=== PATIENT | female | born 1930 | race Caucasian/White ===

== ENCOUNTER 2020-04-26 00:05 | Inpatient (IN) | payer MEDICARE, OTHER ==
[~2020-04-26] VITALS: Ht 149.9 cm; Wt 64.8 kg
[2020-04-26] VITALS (7 sets, daily range): BP systolic 113–150; BP diastolic 53–75
[~2020-04-26 00:05] MED LIST: CEFT2PIG2 IV; ENAL1TAB4 PO; LEVO100T PO; METO25TA35 PO
[2020-04-26] MEDS ORDERED: ONDANSETRON 2MG/ML, 2ML IVPush ONE (00:30)
[2020-04-26] MEDS ORDERED: ONDANSETRON 2MG/ML, 2ML ONE (00:37)
[2020-04-26] MEDS ORDERED: MORPHINE SULFATE 4 MG/ML, 1ML ONE ×2 (00:37→01:47)
[2020-04-26] MEDS: MORPHINE SULFATE 4 MG/ML, 1ML IVPush PRN ×2 (00:40→01:51)
--- NOTE | 2020-04-26 00:44 | NUR ---
PT BIB [facility] FOR C/O ABD DISTENSION AND ABD PAIN THAT STARTED 2 HOURS AGO AND HAS PROGRESSIVELY GOTTEN WORSE. PT HAS FOCAL TENDERNESS EPIGASTRIC, DIFFUSE TENDERNESS THROUGHOUT ABDOMEN. DENIES ANY OTHER SYMPTOMS, NO N/V/D, FEVERS, OR URINARY COMPLAINTS. PT HAD A BOWEL MOVEMENT THIS MORNING. PT HAS FREQUENT PACs AND PVCs ON THE MONITOR. PT MEDICATED PER NOV, SPO2 DIPPED TO 87% ON RA AFTER ADMIN. PT PLACED ON 2L O2 FOR SUPPORT WHILE MEDICATED. EKG COMPLETED. LAB AT BEDSIDE. PT DENIES ANY NEEDS AT THIS TIME. CALL LIGHT IN REACH.
[2020-04-26 00:55] LABS: ALANINE AMINOTRANSFERASE 13 U/L (12-78); ALBUMIN 2.8 g/dL (3.4-5.0); ANION GAP 10 mmol/L (5-15); CALCIUM 8.7 mg/dL (8.5-10.1); CHLORIDE 110 mmol/L (98-107)
[2020-04-26 01:00] LABS: ALKALINE PHOSPHATASE 123 U/L (45-117); BILIRUBIN,TOTAL 0.2 mg/dL (0.2-1.0); TOTAL PROTEIN 7.3 g/dL (6.4-8.2); TROPONIN I 0.021 ng/mL (0.000-0.045)
[2020-04-26 01:02] LABS: MEAN CORPUSCULAR HEMOGLOBIN 24.9 pg (27.0-34.8); MEAN CORPUSCULAR HGB CONC 30.9 g/dL (32.4-35.8); MEAN PLATELET VOLUME 7.8 fL (7.4-10.4); PLATELET COUNT 414 x10^3/uL (130-400); RED BLOOD COUNT 3.19 x10^6/uL (3.82-5.3); RED CELL DISTRIBUTION WIDTH 16.5 % (9.6-15.2)
[2020-04-26 01:04] LABS: MD YES
[2020-04-26 01:11] LABS: ANISOCYTOSIS 1+; HYPOCHROMIA 1+; LYMPH#(MANUAL) 0.34 x10^3/uL (1-3.4); LYMPHS% (MANUAL) 3 % (22-44); MONOS#(MANUAL) 0.45 x10^3/uL (0.3-2.7); MONOS% (MANUAL) 4 % (2-9); SEG#(MANUAL) 10.42 x10^3/uL (1.8-6.8); SEGS% (MANUAL) 93 % (42-75)
[2020-04-26 01:12] LABS: <PLATELET ESTIMATE> INCREASED; <PLT MORPHOLOGY> NORMAL PLT MORPH
[2020-04-26] MEDS ORDERED: SODIUM CHLORIDE 0.9% 1,000ML IVBOLUS ONE ×2 (01:30→02:00)
[2020-04-26] MEDS ORDERED: OMNIPAQUE 350 MG/ML, 100ML BOTTLE ONE (01:47)
--- NOTE | 2020-04-26 02:00 | NUR ---
Pt report from Dai mahajan. This rn to assume care of pt.
--- NOTE | 2020-04-26 02:41 | NUR ---
Md at bedside for reassessment. Pt HOB repositioned for comfort. No other immediate needs. Awaiting adm orders.
[2020-04-26] MEDS ORDERED: SODIUM CHLORIDE 0.9% 1,000 ML IV ONE (02:50)
[2020-04-26] MEDS ORDERED: ONDANSETRON 2MG/ML, 2ML IVPush PRN ×2 (03:00→05:30)
[2020-04-26] MEDS ORDERED: MORPHINE SULFATE 4 MG/ML, 1ML IVPush PRN (03:00)
[2020-04-26] MEDS ORDERED: SODIUM CHLORIDE 0.9% 1,000 ML IV SCH (05:07)
[2020-04-26] MEDS ORDERED: MELATONIN 5 MG TABLET PO PRN (05:30)
[2020-04-26] MEDS ORDERED: hydrALAzine 20 MG/ML, 1ML IVPush PRN (05:30)
[2020-04-26] MEDS ORDERED: PROMETHAZINE 25 MG/ML, 1ML IM PRN (05:30)
[2020-04-26] MEDS ORDERED: ACETAMINOPHEN 325 MG TABLET PO PRN (05:30)
[2020-04-26] MEDS ORDERED: ENOXAPARIN 30 MG/0.3 ML SQ SCH (05:30)
[2020-04-26] MEDS ORDERED: CIPROFLOXACIN LACTATE 200 MG in DEXTROSE 5% 100 ML IV SCH (06:00)
[2020-04-26] MEDS: morphine SULFATE 10 MG/ML, 1ML IVPush PRN ×3 (06:05→18:26)
[2020-04-26] MEDS: METRONIDAZOLE PMX 500MG/100ML 100 ML IV SCH ×2 (06:06→12:55)
[2020-04-26 06:10] LABS: ALANINE AMINOTRANSFERASE 11 U/L (12-78); ALBUMIN 2.6 g/dL (3.4-5.0); ANION GAP 8 mmol/L (5-15); CALCIUM 8.4 mg/dL (8.5-10.1); CHLORIDE 112 mmol/L (98-107); CHOLESTEROL, TOTAL 118 mg/dL (140-239); CREATININE 1.29 mg/dL (0.55-1.02)
[2020-04-26 06:13] LABS: ALKALINE PHOSPHATASE 108 U/L (45-117); BILIRUBIN,TOTAL 0.4 mg/dL (0.2-1.0); CREATINE KINASE, TOTAL 50 U/L (26-192); HDL CHOLESTEROL (DIRECT) 49 mg/dL (40-60); TOTAL PROTEIN 6.1 g/dL (6.4-8.2); TRIGLYCERIDES 102 mg/dL (50-200); TROPONIN I 0.034 ng/mL (0.000-0.045); VLDL CHOLESTEROL 20 mg/dL (0-25)
[2020-04-26] MEDS ORDERED: ACET325C6 PO (06:14)
[2020-04-26 06:24] LABS: MEAN CORPUSCULAR HEMOGLOBIN 24.9 pg (27.0-34.8); MEAN CORPUSCULAR HGB CONC 30.6 g/dL (32.4-35.8); MEAN PLATELET VOLUME 7.1 fL (7.4-10.4); PLATELET COUNT 352 x10^3/uL (130-400); RED BLOOD COUNT 2.76 x10^6/uL (3.82-5.3)
[2020-04-26 06:26] LABS: CHOL/HDL RATIO 2.4; HDL CHOL % 42 % (28-40); LDL CHOLESTEROL,CALCULATED 48 mg/dL (54-169)
[2020-04-26 06:37] LABS: BASOPHILS # (AUTO) 0.01 x10^3/uL (0-0.1); BASOPHILS % (AUTO) 0 % (0-1); EOSINOPHILS % (AUTO) 0 % (1-7); LYMPHOCYTES # (AUTO) 0.57 x10^3/uL (1-3.4); LYMPHOCYTES % (AUTO) 4 % (22-44); MD SCAN; MONOCYTES # (AUTO) 0.81 x10^3/uL (0.2-0.8); MONOCYTES % (AUTO) 5 % (2-9); NEUTROPHILS # (AUTO) 14.03 x10^3/uL (1.8-6.8); NEUTROPHILS % (AUTO) 91 % (42-75)
[2020-04-26] MEDS: PANTOPRAZOLE 40 MG IV IVPush SCH (11:05)
[2020-04-26 13:39] LABS: CREATINE KINASE, TOTAL 43 U/L (26-192); TROPONIN I 0.043 ng/mL (0.000-0.045)
[2020-04-26] MEDS ORDERED: PHARMACY MAY ADJ FOR RENAL FX MC PRN (16:30)
[2020-04-26] MEDS ORDERED: CEFTRIAXONE PMX 1GM/50ML 50 ML IV SCH (17:00)
[2020-04-26] MEDS: MEROPENEM 1 GM in SODIUM CHLORIDE 0.9% 100 ML IV SCH (18:44)
[2020-04-26 21:53] LABS: CREATINE KINASE, TOTAL 49 U/L (26-192); TROPONIN I 0.083 ng/mL (0.000-0.045)
[2020-04-26] MEDS: SODIUM CHLORIDE 0.9% 1,000 ML IV SCH (23:48)
[2020-04-27] MEDS: morphine SULFATE 10 MG/ML, 1ML IVPush PRN ×3 (01:17→14:18)
[2020-04-27 01:51] VITALS: BP 112/62
[2020-04-27] MEDS: MEROPENEM 1 GM in SODIUM CHLORIDE 0.9% 100 ML IV SCH ×2 (02:47→11:58)
[2020-04-27 06:14] LABS: ALANINE AMINOTRANSFERASE 11 U/L (12-78); ALBUMIN 2.2 g/dL (3.4-5.0); ANION GAP 9 mmol/L (5-15); CALCIUM 8.4 mg/dL (8.5-10.1); CHLORIDE 116 mmol/L (98-107); CREATININE 1.49 mg/dL (0.55-1.02)
[2020-04-27 06:19] LABS: ALKALINE PHOSPHATASE 109 U/L (45-117); BILIRUBIN,TOTAL 0.4 mg/dL (0.2-1.0); TOTAL PROTEIN 5.4 g/dL (6.4-8.2)
[2020-04-27 07:07] VITALS: BP 135/71
[2020-04-27] MEDS: PANTOPRAZOLE 40 MG IV IVPush SCH (08:18)
[2020-04-27 10:25] LABS: TROPONIN I 0.152 ng/mL (0.000-0.045)
[2020-04-27] MEDS: SODIUM CHLORIDE 0.9% 1,000 ML IV SCH (12:53)
[2020-04-27 17:05] VITALS: BP 124/75
[2020-04-27 18:09] LABS: MICROSCOPIC AUTO
[2020-04-27] MEDS ORDERED: morphine SULFATE 10 MG/ML, 1ML IVPush PRN (18:30)
[2020-04-27 19:29] VITALS: BP 148/67
[2020-04-28] MEDS: MEROPENEM 1 GM in SODIUM CHLORIDE 0.9% 100 ML IV SCH ×3 (00:16→23:54)
[2020-04-28] MEDS: SODIUM CHLORIDE 0.9% 1,000 ML IV SCH ×3 (00:18→22:48)
[2020-04-28 01:46] VITALS: BP 140/81
[2020-04-28] MEDS: morphine SULFATE 10 MG/ML, 1ML IVPush PRN ×2 (04:35→20:59)
[2020-04-28 05:31] LABS: MEAN CORPUSCULAR HEMOGLOBIN 25.3 pg (27.0-34.8); MEAN CORPUSCULAR HGB CONC 30.2 g/dL (32.4-35.8); MEAN PLATELET VOLUME 7.8 fL (7.4-10.4); PLATELET COUNT 224 x10^3/uL (130-400); RED CELL DISTRIBUTION WIDTH 17.1 % (9.6-15.2)
[2020-04-28 05:35] LABS: CHLORIDE 121 mmol/L (98-107)
[2020-04-28 05:41] LABS: ANION GAP 7 mmol/L (5-15); CREATININE 1.47 mg/dL (0.55-1.02)
[2020-04-28 05:48] LABS: CALCIUM 8.2 mg/dL (8.5-10.1)
[2020-04-28 06:09] LABS: MD YES
[2020-04-28 06:10] LABS: LYMPH#(MANUAL) 0.66 x10^3/uL (1-3.4); LYMPHS% (MANUAL) 4 % (22-44); SEG#(MANUAL) 15.84 x10^3/uL (1.8-6.8); SEGS% (MANUAL) 96 % (42-75)
[2020-04-28 06:11] LABS: ACANTHOCYTES 1+; ANISOCYTOSIS 1+; ECHINOCYTES 1+; HYPOCHROMIA 1+; OVALOCYTES 1+
[2020-04-28 06:13] LABS: <PLATELET ESTIMATE> ADEQUATE; <PLT MORPHOLOGY> NORMAL PLT MORPH
[2020-04-28 08:02] VITALS: BP 128/71
[2020-04-28] MEDS: PANTOPRAZOLE 40 MG IV IVPush SCH (08:42)
[2020-04-28] MEDS: ALBUTEROL HFA 90 MCG/SPRAY INH PRN ×2 (12:11→20:45)
[2020-04-28] MEDS: DILTIAZEM 30 MG TABLET PO SCH ×3 (12:29→20:42)
[2020-04-28] MEDS ORDERED: MORPHINE SULFATE 4 MG/ML, 1ML ONE (16:14)
[2020-04-28 16:40] VITALS: BP 140/78
[2020-04-28 19:55] VITALS: BP 130/62
[2020-04-28] MEDS ORDERED: FENTANYL PF 250 MCG/5ML ONE (20:17)
[2020-04-28 20:40] VITALS: BP 137/59
[2020-04-29 00:34] VITALS: BP 137/70
[2020-04-29] MEDS: morphine SULFATE 10 MG/ML, 1ML IVPush PRN ×4 (02:07→18:07)
[2020-04-29] MEDS: ALBUTEROL HFA 90 MCG/SPRAY INH PRN ×3 (05:13→18:07)
[2020-04-29 07:37] VITALS: BP 134/63
[2020-04-29] MEDS: SODIUM CHLORIDE 0.9% 1,000 ML IV SCH (08:03)
[2020-04-29] MEDS: DILTIAZEM 30 MG TABLET PO SCH ×2 (08:03→15:00)
[2020-04-29] MEDS: PANTOPRAZOLE 40 MG IV IVPush SCH (08:03)
[2020-04-29] MEDS ORDERED: SCOPOLAMINE 1MG PATCH TD SCH (10:30)
[2020-04-29] MEDS ORDERED: DILT30TA27 PO (11:06)
[2020-04-29] MEDS ORDERED: ALBU18HF INH (11:06)
[2020-04-29] MEDS ORDERED: MELA5TAB14 PO (11:06)
[2020-04-29] MEDS ORDERED: LEVO500T47 PO (11:06)
[2020-04-29] MEDS: methylPREDNISolone SOD SUCC 40 MG/ML IV SCH ×2 (11:48→18:07)
[2020-04-29] MEDS: MEROPENEM 1 GM in SODIUM CHLORIDE 0.9% 100 ML IV SCH (12:40)
[2020-04-29 13:20] VITALS: BP 124/70
== END 2020-04-29 19:15 | disposition hospice, home (50) | DRG 438 ==
LOC: ED 01:19 → EDIP 02:50 → 4WST 03:43
PROVIDERS: ADMIT Internal Medicine; ATTEND Internal Medicine
PROC: 30233N1 Transfusion of Nonautologous Red Blood Cells into Peripheral Vein, Percutaneous Approach (ICD-10-PCS; principal; 2020-04-26)
PROC: 02HV33Z Insertion of Infusion Device into Superior Vena Cava, Percutaneous Approach (ICD-10-PCS; 2020-04-26)
PROC: B5181ZA Fluoroscopy of Superior Vena Cava using Low Osmolar Contrast, Guidance (ICD-10-PCS; 2020-04-26)
PROC: B548ZZA Ultrasonography of Superior Vena Cava, Guidance (ICD-10-PCS; 2020-04-26)
DX: K85.90 Acute pancreatitis without necrosis or infection, unspecified (principal); I26.99 Other pulmonary embolism without acute cor pulmonale; J18.9 Pneumonia, unspecified organism; I47.1 Supraventricular tachycardia; I48.92 Unspecified atrial flutter; N17.9 Acute kidney failure, unspecified; K86.1 Other chronic pancreatitis; D64.9 Anemia, unspecified; I10 Essential (primary) hypertension; K52.9 Noninfective gastroenteritis and colitis, unspecified; I48.91 Unspecified atrial fibrillation; K86.89 Other specified diseases of pancreas; Z60.2 Problems related to living alone; E03.9 Hypothyroidism, unspecified; Z51.5 Encounter for palliative care; Z66 Do not resuscitate; I34.0 Nonrheumatic mitral (valve) insufficiency; I27.20 Pulmonary hypertension, unspecified; I25.2 Old myocardial infarction; Z79.899 Other long term (current) drug therapy; Z88.8 Allergy status to other drugs, medicaments and biological substances
CPT/HCPCS: 36415; 36430; 36573; 71045; 74176; 74177; 76700; 78582; 80048; 80053; 80061; 81001; 82150; 82550; 83690; 83735; 83880; 84100; 84443; 84484; 85014; 85018; 85025; 86850; 86900; 86923; 87086; 93005; 93306; 93970; 96361; 96374; 96375; 96376; G0378; J1650; J2185; J2405; J3010; Q9967; A9540; A9558; C1751; C9113; J0744; J2270; J2920; J7030; P9016